=== PATIENT | male | born 1970 | race Caucasian/White ===

== ENCOUNTER 2023-02-13 16:10 | Outpatient (AMB) | payer OTHER, SELFPAY ==
--- NOTE | 2023-02-13 16:24 | A.OFFPC_ITS ---
Vital Signs 02/13/23 16:26 Height 5 ft 6 in Weight 157 lb BMI 25.3 BP 120/80 Blood Pressure Location Lt brachial Position Sitting Pulse 78 Pulse Source Pulse Oximeter Pulse Oximetry (%) 98 Oxygen Delivery Method Room Air Intake Visit Reasons: NPV- cluster headaches/medication Manager Testing Required: No Accompanied by: Self / Same As Patient Allergies No Known Allergies Allergy (Verified 02/13/23 16:51) Medication List - Last Reconciled 02/13/23 by Shahram Armas MD prednisone 1 tablet TID x 5 days, then 1 tablet BID x 5 days, then 1 tablet QD x 5 days; Tobacco use date assessed: 02/13/23 Dental Screening Dental Screen Date: 02/13/23 Did you have a dental visit in the last 12 months?: Yes Did you have a dental problem in the last 6 months where you did not have access to dental care?: No Was dental information given to patient?: Patient has dentist HPI NPV- cluster headaches/medication HPI Details Patient comes in today for his annual physical examination and to REestablish care - used to see Lilia Gan but he has not been back since 2016 (last visit was on 08/15/2016) States that he continues to follow up with Dr. Reis (neurology) for management of his cluster headaches and ADD Was on Methylphenidate 10 mg QD-BID in the past but states that he was taken off Methylphenidate by Dr. Reis a few months ago - was reportedly told that he is getting too old to continue taking stimulants States that he currently feels okay and that his only potential issue is that he cannot seem to get more than 5 to 5.5 hours of sleep at night before he wakes up States that he is not able to go back to sleep afterwards but he does not experience any increased fatigue or somnolence during the day and other than taking a 20 minute power nap in the early afternoon, he has not needed to get any additional sleep/nap/rest throughout the day He denies any headaches lately and states that his cluster headaches seem to be well-controlled and he has not had to take any Prednisone for flare ups of his cluster headaches lately Denies any dizziness Denies any chest pains, no SOB No nausea/vomiting, no abdominal pain No change in bowel habits noted He denies any acute urinary symptoms States that he has never had a screening colonoscopy done in the past [facility] Medical History Smoker Attention deficit disorder (ADD) Cluster headaches Surgical History History of tooth extraction Social History (Updated 02/13/23 @ 19:11 by Shahram Armas MD) Housing: Apartment Alcohol intake: current Alcohol intake frequency: 3 or more drinks per day Patient Tobacco Use Status: Former Tobacco user e-Cigarette/Vaping Use: Former Use Substance Use Type: Marijuana service: No Current occupational status: employed Cognitive needs: No Hearing needs: No Vision needs: No Questionnaire PHQ-9 Over the last 2 weeks, how often have you been bothered by any of the following problems? 1. Little interest or pleasure in doing things: not at all 2. Feeling down, depressed, or hopeless: not at all 3. Trouble falling or staying asleep, or sleeping too much: not at all 4. Feeling tired or having little energy: not at all 5. Poor appetite or overeating: not at all 6. Feeling bad about yourself - or that you are a failure or have let yourself or your family down: not at all 7. Trouble concentrating on things, such as reading the newspaper or watching television: not at all 8. Moving or speaking so slowly that other people could have noticed. Or the opposite - being so fidgety or restless that you have been moving around a lot more than usual: not at all 9. Thoughts that you would be better off or of hurting yourself in some way: not at all Total score: 0 Depression Screening Interpretation: Negative 30311 - PHQ-9 Billing: Yes Source: Developed by Drs. Kendall Lowe, Mylene Santana, Edgar Argueta and colleagues, with an educational kassi from [employer]. Thrive Questionnaire Date Thrive assessed: 02/13/23 I am a: Patient What is your living situation today?: I have a steady place to live Within the past 12 months, did the food you bought not last and you didn't have the money to get more?: Never true Within the past 12 months, did you worry whether your food would run out before you got money to buy more?: Never true Do you have trouble paying for medicines?: No Do you have trouble getting transportation to medical appointments?: No Do you have trouble paying your heating and electricity bill?: No Do you have trouble taking care of your child, family member or friend?: No Do you have trouble with day-to-day activities such as bathing, preparing meals, shopping, managing finances, etc.?: No Are you currently unemployed and looking for a job?: No Are you interested in more education?: No Please select the resources that you would like help with: None Currently or been in a relationship where the following occur: no concerns reported AUDIT C Alcohol Use Questionnaire (AUDIT-C) 1. How often do you have a drink containing alcohol?: 2-3 times a week 3. How often do you have six or more drinks on one occasion?: Weekly Total Score: 6 Score Reviewed/Action Taken: Yes ALAN-7 AMB Questionnaire ALAN-7 Date ALAN - 7 assessed: 02/13/23 Feeling nervous, anxious, or on edge: 0 = Not at all Not being able to stop or control worryin = Not at all Worrying too much about different things: 0 = Not at all Trouble relaxin = Not at all Being so restless that it is hard to sit still: 0 = Not at all Becoming easily annoyed or irritable: 0 = Not at all Feeling afraid as if something awful might happen: 0 = Not at all Total ALAN-7 score (0-4 normal; 5-9 mild; 10-14 moderate; 15-21 severe): 0 Source: Developed by Drs. Kendall Lowe, Mylene Santana, Edgar Argueta and colleagues, with an educational kassi from [employer]. Review of Systems Const Denies chills, Denies fatigue, Denies fever(s), Denies headache(s) (controlled lately), Denies malaise and Denies weakness Eyes Denies blurry vision, Denies change in vision, Denies irritation and Denies itchy eyes ENT Denies dysphagia, Denies dizziness, Denies otalgia, Denies headache(s) (controlled lately), Denies nasal congestion, Denies neck pain, Denies odynophagia and Denies sore throat Card Denies chest pain, Denies rapid heart rate, Denies irregular heart rhythm, Denies palpitations and Denies dyspnea Resp Denies chest congestion, Denies cough, Denies dyspnea and Denies wheezing GI Denies abdominal pain, Denies bloating, Denies constipation, Denies dysphagia, Denies heartburn, Denies diarrhea, Denies nausea, Denies odynophagia and Denies vomiting Denies hematuria, Denies difficulty urinating, Denies dysuria, Denies urinary frequency and Denies urinary urgency Musc Denies back pain, Denies arthralgias, Denies joint swelling, Denies muscle weakness and Denies neck pain Skin/Breast Denies change in pigmentation, Denies lesions, Denies rash and Denies unusual bruising Neuro Denies dizziness, Denies headache(s) (controlled lately), Denies paresthesias and Denies weakness Endo Denies fatigue and Denies palpitations Aller/Immun Denies itchy eyes and Denies wheezing Physical exam (Primary Care) Vital Signs: Last Vital Signs Pulse 78 02/13/23 16:26 BP 120/80 02/13/23 16:26 Pulse Ox 98 02/13/23 16:26 Oxygen Delivery Method Room Air 02/13/23 16:26 BMI result Body Mass Index 25.3 Tobacco/Smoking Status: Tobacco use Status Tobacco use date assessed 02/13/23 02/13/23 16:32 Patient Tobacco Use Status Former Tobacco user 02/13/23 16:58 e-Cigarette/Vaping Use Former Use 02/13/23 16:58 PHQ-9: PHQ-9 Score PHQ-9: Total score 0 02/13/23 16:59 Depression Screening Interpretation: Negative Thrive Assessment: Date of Thrive Assessment Date Thrive assessed 02/13/23 02/13/23 16:32 Currently or been in a relationship where the following occur: no concerns reported Const General: no acute distress, alert and awake Orientation/consciousness: patient oriented x3 HENMT Head: Yes normocephalic and Yes atraumatic Ears: external ears normal, TM's normal bilaterally and EAC's normal General nose exam: No nasal discharge present Face and sinus: Yes normal facial exam and Yes sinuses nontender Teeth and gingiva: dentition normal Throat: Yes posterior oropharynx normal and Yes tonsils normal (no TP congestion) Eyes Eyelids: Yes eyelids normal Conjunctivae: conjunctivae normal Pupils: Equal, round and reactive pupils present EOM: EOMs intact bilaterally Neck Neck: Yes no lymphadenopathy and Yes supple Thyroid: Thyroid normal Resp Auscultation: clear to auscultation bilaterally, no rales and no wheezes Cardio Rate: regular rate Rhythm: regular rhythm Heart sounds: no murmurs GI Palpation (GI): Soft to palpation, nontender and No hepatosplenomegaly present Auscultation: normal bowel sounds General: Yes no CVA tenderness Back/Spine/Pelvis Back: no CVA tenderness Thoracic/Lumbar Spine: thoracic and lumbar spine normal to inspection Skin Lesions: no lesions Rashes: no rashes Neuro General: patient oriented x3, moves all extremities, no focal motor deficits and CN's II-XI intact bilaterally Cranial nerves: Yes Equal, round and reactive pupils present Cognition (Neuro): normal cognition Gait exam (Neuro): Normal gait present Extrem General: Yes no clubbing, cyanosis or edema Assessment and Plan Assessment & Plan (1) Annual physical exam: Code(s): Z00.00 - Encounter for general adult medical examination without abnormal findings Plan: Check labs NICKY Is advised that we will reach out to him if any of his labs come back abnormal and needs intervention (2) Cluster headaches: Code(s): G44.009 - Cluster headache syndrome, unspecified, not intractable Qualifiers: Headache chronicity pattern: unspecified pattern Intractability: not intractable Qualified Code(s): G44.009 - Cluster headache syndrome, uns pecified, not intractable Plan: Controlled lately Takes Prednisone 20 mg as instructed as needed when headaches flare up but states that he has not had to take Prednisone in a while now Follow up with neurology (Dr. Reis) as scheduled (3) Attention deficit disorder (ADD): Code(s): F98.8 - Other specified behavioral and emotional disorders with onset usually occurring in childhood and adolescence Qualifiers: Hyperactivity presence: absent Qualified Code(s): F98.8 - Other specified behavioral and emotional disorders with onset usually occurring in childhood and adolescence Plan: Used to take Methylphenidate 10 mg QD-BID in the past but states that he was taken off Methylphenidate by Dr. Reis a few months ago as he was reportedly told that he is getting too old to continue taking stimulants Follow up with Dr. Reis as scheduled (4) Smoker: Code(s): F17.200 - Nicotine dependence, unspecified, uncomplicated Plan: Counseled on smoking cessation States that he quit smoking a couple of months ago but often goes back to smoking on and off - have advised that his goal should be complete cessation of smoking (5) Colon cancer screening: Code(s): Z12.11 - Encounter for screening for malignant neoplasm of colon Plan: Will refer him to GI for screening colonoscopy (has never had one done in the past) Plan To return in 1 year for his next annual physical examination Orders: Orders Comprehensive [place]. Panel Fast Today G44.009 - Cluster headache syndrome, unspecified, not intractable, Z00.00 - Encounter for general adult medical examination without abnormal findings Lipid Panel Today E78.00 - Pure hypercholesterolemia, unspecified, G44.009 - Cluster headache syndrome, unspecified, not intractable, Z00.00 - Encounter for general adult medical examination without abnormal findings TSH reflex Free T4 Today E78.00 - Pure hypercholesterolemia, unspecified, Z00.00 - Encounter for general adult medical examination without abnormal findings UA CC w/rflx Micro + Cult Today R30.0 - Dysuria, Z00.00 - Encounter for general adult medical examination without abnormal findings Vitamin D 25-OH Total Today E55.9 - Vitamin D deficiency, unspecified Complete Blood Count Auto Diff Today G44.009 - Cluster headache syndrome, unspecified, not intractable, Z00.00 - Encounter for general adult medical examination without abnormal findings Prostate Specific Antigen Scr Today G44.009 - Cluster headache syndrome, unspecified, not intractable, Z00.00 - Encounter for general adult medical examination without abnormal findings Referrals Gastroenterology Referral Z12.11 - Encounter for screening for malignant neoplasm of colon Coding Level of Care Code New Pt Prev Care 40-64y([id number]) Diagnoses Annual physical exam Z00.00 Cluster headache, not intractable, unspecified chronicity pattern G44.009 Headache chronicity pattern: unspecified pattern Intractability: not intractable Attention deficit disorder (ADD) without hyperactivity F98.8 Hyperactivity presence: absent Smoker F17.200 Colon cancer screening Z12.11
[2023-02-13 16:26] VITALS: BP 120/80; PULSE 78; O2SAT 98; BMI 25.3
== END 2023-02-13 17:08 | disposition home or self-care (01) ==
PROVIDERS: Visit Provider Internal Medicine
DX: Z00.00 Encounter for general adult medical examination without abnormal findings (principal); G44.009 Cluster headache syndrome, unspecified, not intractable; F98.8 Other specified behavioral and emotional disorders with onset usually occurring in childhood and adolescence; F17.200 Nicotine dependence, unspecified, uncomplicated; Z12.11 Encounter for screening for malignant neoplasm of colon
CPT/HCPCS: 99386

== ENCOUNTER 2023-04-16 15:29 | Outpatient (AMB) | payer OTHER, SELFPAY ==
--- NOTE | 2023-04-16 15:33 | A.OFFVIS_ITS ---
Intake Vital Signs 04/16/23 15:35 Height 5 ft 5 in Weight 164 lb 7.437 oz BMI 27.4 BP 122/71 Blood Pressure Location Lt brachial Position Sitting Pulse 72 Intake Visit Reasons: Colonoscopy screening Intake Note: Patient presents to in office visit today as a new patient for colonoscopy screening. CC: Patient has never had a colonoscopy done before, Denies having any GI concerns today. Allergies No Known Allergies Allergy (Verified 04/16/23 15:38) HPI Colonoscopy screening HPI Details 52-year-old male here for preprocedural meeting to discuss a screening colonoscopy. He is referred by Shahram Armas of [facility] primary care. PMX Smoker Attention deficit disorder Cluster headaches * SURGICAL HISTORY Teeth extraction * ALLERGIES: NKDA * Lot78 LABS: none in our system TODAY'S VISIT This is his first colonoscopy. HE DENIES ANY BOWEL OR upper GI problems. He denies any cardiac or respiratory problems. He has cardiology technologist with anesthesia or sedation. No ID problems. No known FHX of crc or polyps. [facility] Medical History Smoker Attention deficit disorder (ADD) Cluster headaches Surgical History History of tooth extraction Social History (Updated 02/13/23 @ 19:11 by Shahram Armas MD) Housing: Apartment Alcohol intake: current Alcohol intake frequency: 3 or more drinks per day Patient Tobacco Use Status: Former Tobacco user e-Cigarette/Vaping Use: Former Use Substance Use Type: Marijuana service: No Current occupational status: employed Cognitive needs: No Hearing needs: No Vision needs: No Review of Systems Const Denies fatigue, Denies fever(s), Denies night sweats, Denies poor appetite and Denies weight loss ENT Reports Normal hearing present, Denies dental pain, Denies dysphagia, Denies hearing loss, Denies mouth pain, Denies odynophagia, Denies throat swelling, Denies tongue swelling and Reports other (Dentition adequate) Card Reports no additional complaints Resp Reports no additional complaints GI Denies abdominal pain, Denies melena, Denies bloating, Denies hematochezia, Denies constipation, Denies GI cramping, Denies dysphagia, Denies excessive flatus, Denies early satiety, Denies heartburn, Denies diarrhea, Denies nausea, Denies odynophagia, Denies vomiting and Denies hematemesis Skin/Breast Denies pruritus, Denies lesions, Denies rash and Denies jaundice Neuro Reports Normal hearing present and Denies Abnormal speech present Endo Denies fatigue Aller/Immun Denies throat swelling and Denies tongue swelling Physical Exam Vital Signs: Last Vital Signs Pulse 72 04/16/23 15:35 BP 122/71 04/16/23 15:35 BMI result Body Mass Index 27.4 Const General: cooperative, no acute distress, well developed and well groomed Nutritional Appearance: average body habitus and well nourished Orientation/consciousness: oriented to person, oriented to place and oriented to time Limitations: No language barrier HEENT Head: Yes normocephalic and Yes atraumatic Eyes General: appearance normal, both eyes and all related structures Pupils: Equal, round and reactive pupils present Neck Neck: Yes normal visual inspection and Yes no lymphadenopathy Thyroid: Thyroid normal Resp Effort & Inspection: normal respiratory effort and able to speak in complete sentences Auscultation: clear to auscultation bilaterally Cardio Rate: regular rate Rhythm: regular rhythm Heart sounds: Normal, physiologic split S2 sound present Peripheral pulses: radial pulses present and posterior tibial pulses present GI Inspection: No distended and No Abdominal panniculus present Palpation (GI): Soft to palpation, nontender, no guarding, not rigid and No hepatosplenomegaly present Percussion: Yes normal to percussion Auscultation: normal bowel sounds Rectal Exam - Male: Yes deferred Skin General skin exam: no rashes or lesions noted, turgor normal, skin not dry, no jaundice, No spider nevi and no striae Rashes: no rashes Nails: normal Neuro General: oriented to person, oriented to place and oriented to time Cranial nerves: Yes Equal, round and reactive pupils present and Yes Normal hearing present Speech: No Abnormal speech present Extrem General: Yes normal to inspection, No clubbing, No cyanosis and No edema Psych Appearance: grossly normal and well kempt Mental Status: mental status grossly normal Speech and movement: Normal speech and movement present Affect: normal affect Attitude: cooperative Thought process: Normal thought process present and not confabulating Thought content: Normal thought content present Insight: Fair insight present (Psych) Judgement: Fair judgement present (Psych) Assessment & Plan Assessment & Plan (1) Pre-op examination: Code(s): Z01.818 - Encounter for other preprocedural examination Plan This is his first colonoscopy. HE DENIES ANY BOWEL OR upper GI problems. He denies any cardiac or respiratory problems. He has cardiology technologist with anesthesia or sedation. No ID problems. No known FHX of crc or polyps. Orders: Orders Comprehensive Met. Panel 04/16/23 Z01.818 - Encounter for other preprocedural examination Complete Blood Count Auto Diff 04/16/23 Z.818 - Encounter for other preprocedural examination Medications: New peg 3350-electrolytes 236-22.74-6.74 -5.86 gram (Golytely) until fecal effluent is clear; do not exceed a total volume of 2,000 mL 240 mL PO Q10M 4,000 mL 0RF 1 day Z12.11 - Encounter for screening for malignant neoplasm of colon Coding Level of Care Code New Pt Level 3 (56858) Diagnoses Pre-op examination Z01.818
[2023-04-16 15:35] VITALS: BP 122/71; PULSE 72; BMI 27.4
== END 2023-04-16 16:01 | disposition home or self-care (01) ==
PROVIDERS: Visit Provider Nurse Practitioner
DX: Z01.818 Encounter for other preprocedural examination (principal)
CPT/HCPCS: 99203

== ENCOUNTER → 2023-04-16 15:29 | Outpatient (BNVA) | payer OTHER, SELFPAY | PROVIDERS: Visit Provider Nurse Practitioner ==

== ENCOUNTER 2023-12-14 07:02 | Outpatient (REF) | payer BC, SELFPAY ==
[2023-12-14 07:16] LABS: MANUAL DIFF FLAG NO
[2023-12-14 08:08] LABS: Basophils Percent Auto 0.2 % (0-2); Eosinophils Absolute Auto 0.1 X10*3/uL (0.0-0.4); Eosinophils Percent Auto 2.3 % (0-4); Hematocrit 44.4 % (42.0-52.0); Hemoglobin 15.3 g/dl (14.0-18.0); Imm Gran Abs Auto 0.02 X10*3/uL (0.00-0.03); Imm Gran Pct Auto 0.3 % (0.0-0.4); Lymphocytes Absolute Auto 2.2 X10*3/uL (1.2-4.9); Lymphocytes Percent Auto 36.5 % (20-40); Mean Corpuscular HGB Conc 34.5 g/dl (31.0-36.0); Mean Corpuscular Hemoglobin 30.5 pg (27.0-33.0); Mean Corpuscular Volume 88.6 fL (80.0-98.0); Mean Platelet Volume 9.8 fL (9.4-12.4); Monocytes Absolute Auto 0.5 X10*3/uL (0.1-1.2); Monocytes Percent Auto 7.9 % (2-11); Neutrophils Absolute Auto 3.2 x10*3/uL (2.0-8.3); Neutrophils Percent Auto 52.8 % (45-73); Platelet Count 219 X10*3/uL (160-400); Red Blood Count 5.01 X10*6/uL (4.60-5.80); Red Cell Distribution Width 13.1 % (11.0-16.0); White Blood Count 6.1 X10*3/uL (4.8-10.8)
[2023-12-14 08:37] LABS: Alanine Aminotransferase 18 U/L (0-40); Albumin Level 4.4 g/dL (3.5-5.0); Alkaline Phosphatase 72 U/L (39-117); Anion Gap 12 (12-20); Aspartate Amino Transferase 17 U/L (5-37); Bilirubin Total 0.6 mg/dL (0.0-1.0); Blood Urea Nitrogen 16 mg/dL (9-16); Calcium 8.9 mg/dL (8.4-10.2); Carbon Dioxide 25 mmol/L (22-29); Chloride 107 mmol/L (96-108); Cholesterol 277 mg/dL (<200); Estimated Glomerular Filt Rate > 60; Glucose Fasting 94 mg/dL (60-99); HDL Cholesterol 57 mg/dL (>40); LDL Cholesterol Calculated 194 mg/dL (<100); Potassium 3.7 mmol/L (3.3-5.1); Sodium 140 mmol/L (135-145); Total Protein 6.9 g/dL (6.5-8.0); Triglycerides 132 mg/dL (<150)
[2023-12-14 08:56] LABS: TSH reflex Free T4 3.28 uIU/mL (0.32-4.0); Vitamin D 25-OH Total 46.9 ng/mL (>30)
[2023-12-14 11:12] LABS: Prostate Specific Antigen Scr 0.56 ng/mL (<0.05-4.0)
[2023-12-14 13:22] LABS: Appearance Urine Clear; Color Urine Yellow; Glucose Urine UA Negative (Negative); Leukocyte Esterase Urine Negative (Negative); Nitrite Urine Negative (Negative); PH 6.5 (5.0-9.0); Urine Blood Negative (Negative); Urine Ketones Negative (Negative); Urine Protein Negative (Neg-Trace)
== END 2023-12-14 07:03 | disposition home or self-care (01) ==
LOC: HO.LAB 07:02
PROVIDERS: PCP Internal Medicine; Visit Provider Internal Medicine
DX: Z00.00 Encounter for general adult medical examination without abnormal findings (principal); G44.009 Cluster headache syndrome, unspecified, not intractable; E78.00 Pure hypercholesterolemia, unspecified; E55.9 Vitamin D deficiency, unspecified; R30.0 Dysuria; Z12.5 Encounter for screening for malignant neoplasm of prostate
CPT/HCPCS: 36415; 80053; 80061; 81003; 82306; 84153; 84443; 85025

== ENCOUNTER 2024-02-15 16:09 | Outpatient (AMB) | payer BC, SELFPAY ==
[2024-02-15 16:10] VITALS: BP 120/80; PULSE 78; O2SAT 97; BMI 25.8
--- NOTE | 2024-02-15 16:10 | MHC.PC.OV ---
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 Required: No Accompanied by: Self / Same As Patient Allergies No Known Allergies Allergy (Verified 02/16/24 05:00) Medication List - Last Reconciled 02/16/24 by Shahram Armas MD peg 3350-electrolytes 236-22.74-6.74 -5.86 gram (Golytely) 240 mL PO Q10M 1 day Tobacco use date assessed: 02/15/24 Dental Screening Dental Screen Date: 02/15/24 Did you have a dental visit in the last 12 months?: Yes Did you have a dental problem in the last 6 months where you did not have access to dental care?: No Was dental information given to patient?: Patient has dentist HPI pe HPI Details Patient comes in today for his annual physical examination States that he currently feels okay He denies any headaches or dizziness (+) Hx of cluster headaches and he has been seeing Dr. Reis for neurology follow up regularly but states that he has not had any significant bouts with headaches over the past 2 to 3 years now He denies any chest pains, no SOB No nausea/vomiting, no abdominal pain No change in bowel habits noted He denies any acute urinary symptoms Adds that he's had a raised skin lesion over the left side of his neck for a few years now but has noticed lately that is darker in appearance States that the lesion does not hurt or itch but he has been keeping it covered with a band aid all the time to keep it from getting irritated - is wondering if he should now get this checked He had his follow up labs done a couple of months ago - to discuss his results States that he was seen by GI late last year and was advised that once he is cleared , he will be contacted to have his colonoscopy scheduled but states that he has not yet been called up since and he was assuming that this was because he was not able to get his labs done until this past November [facility] Medical History Pure hypercholesterolemia Smoker Attention deficit disorder (ADD) Cluster headaches Surgical History History of tooth extraction Social History Housing: Apartment Alcohol intake: current Alcohol intake frequency: 3 or more drinks per day Patient Tobacco Use Status: Former Tobacco user e-Cigarette/Vaping Use: Former Use Substance Use Type: Marijuana service: No Current occupational status: employed Cognitive needs: No Hearing needs: No Vision needs: No Questionnaire PHQ-9 Over the last 2 weeks, how often have you been bothered by any of the following problems? 1. Little interest or pleasure in doing things: not at all 2. Feeling down, depressed, or hopeless: not at all 3. Trouble falling or staying asleep, or sleeping too much: not at all 4. Feeling tired or having little energy: not at all 5. Poor appetite or overeating: not at all 6. Feeling bad about yourself - or that you are a failure or have let yourself or your family down: not at all 7. Trouble concentrating on things, such as reading the newspaper or watching television: not at all 8. Moving or speaking so slowly that other people could have noticed. Or the opposite - being so fidgety or restless that you have been moving around a lot more than usual: not at all 9. Thoughts that you would be better off or of hurting yourself in some way: not at all Total score: 0 Depression Screening Interpretation: Negative Depression Screening Done: Yes 49567 - PHQ-9 Billing: Yes Source: Developed by Drs. Kendall Lowe, Mylene Santana, Edgar Argueta and colleagues, with an educational kassi from [employer]. Thrive Questionnaire Date Thrive assessed: 02/15/24 I am a: Patient What is your living situation today?: I choose not to answer this question Within the past 12 months, did the food you bought not last and you didn't have the money to get more?: I choose not to answer this question Within the past 12 months, did you worry whether your food would run out before you got money to buy more?: I choose not to answer this question Do you have trouble paying for medicines?: I choose not to answer this question Do you have trouble getting transportation to medical appointments?: I choose not to answer this question Do you have trouble paying your heating and electricity bill?: I choose not to answer this question Do you have trouble taking care of your child, family member or friend?: I choose not to answer this question Do you have trouble with day-to-day activities such as bathing, preparing meals, shopping, managing finances, etc.?: I choose not to answer this question Are you currently unemployed and looking for a job?: I choose not to answer this question Are you interested in more education?: I choose not to answer this question Please select the resources that you would like help with: None Currently or been in a relationship where the following occur: No concerns reported THRIVE Score: 0 AUDIT C Alcohol Use Questionnaire (AUDIT-C) 1. How often do you have a drink containing alcohol?: Never Total Score: 0 ALAN-7 AMB Questionnaire ALAN-7 Date ALAN - 7 assessed: 02/15/24 Feeling nervous, anxious, or on edge: 0 = Not at all Not being able to stop or control worryin = Not at all Worrying too much about different things: 0 = Not at all Trouble relaxin = Not at all Being so restless that it is hard to sit still: 0 = Not at all Becoming easily annoyed or irritable: 0 = Not at all Feeling afraid as if something awful might happen: 0 = Not at all Total ALAN-7 score (0-4 normal; 5-9 mild; 10-14 moderate; 15-21 severe): 0 Source: Developed by Drs. Kendall Lowe, Mylene Santana, Edgar Argueta and colleagues, with an educational kassi from [employer]. Review of Systems Const Denies chills, Denies fatigue, Denies fever(s), Denies headache(s), Denies malaise and Denies weakness Eyes Denies blurry vision, Denies change in vision, Denies irritation and Denies itchy eyes ENT Denies dysphagia, Denies dizziness, Denies otalgia, Denies headache(s), Denies nasal congestion, Denies neck pain, Denies odynophagia and Denies sore throat Card Denies chest pain, Denies rapid heart rate, Denies irregular heart rhythm, Denies palpitations and Denies dyspnea Resp Denies chest congestion, Denies cough, Denies dyspnea and Denies wheezing GI Denies abdominal pain, Denies bloating, Denies constipation, Denies dysphagia, Denies heartburn, Denies diarrhea, Denies nausea, Denies odynophagia and Denies vomiting Denies hematuria, Denies difficulty urinating, Denies dysuria, Denies urinary frequency and Denies urinary urgency Musc Denies back pain, Denies arthralgias, Denies joint swelling, Denies muscle weakness and Denies neck pain Skin/Breast Details: (+) raised, dark lesion on the left side of the neck at the base Denies change in pigmentation, Denies rash and Denies unusual bruising Neuro Denies dizziness, Denies headache(s), Denies paresthesias and Denies weakness Endo Denies fatigue and Denies palpitations Aller/Immun Denies itchy eyes and Denies wheezing Physical exam (Primary Care) Vital Signs: Last Vital Signs Pulse 78 02/15/24 16:10 BP 120/80 02/15/24 16:10 Pulse Ox 97 02/15/24 16:10 Oxygen Delivery Method Room Air 02/15/24 16:10 BMI result Body Mass Index 25.8 Tobacco/Smoking Status: Tobacco use Status Tobacco use date assessed 02/15/24 02/15/24 16:16 Patient Tobacco Use Status Former Tobacco user 02/15/24 16:16 e-Cigarette/Vaping Use Former Use 02/15/24 16:16 PHQ-9: PHQ-9 Score PHQ-9: Total score 0 02/15/24 17:05 Depression Screening Interpretation: Negative Thrive Assessment: Date of Thrive Assessment Date Thrive assessed 02/15/24 02/15/24 16:16 Currently or been in a relationship where the following occur: No concerns reported Const General: no acute distress, alert and awake Orientation/consciousness: patient oriented x3 HENMT Head: Yes normocephalic and Yes atraumatic Ears: external ears normal, TM's normal bilaterally and EAC's normal General nose exam: No nasal discharge present Face and sinus: Yes normal facial exam and Yes sinuses nontender Teeth and gingiva: dentition normal Throat: Yes posterior oropharynx normal and Yes tonsils normal (no TP congestion) Eyes Eyelids: Yes eyelids normal Conjunctivae: conjunctivae normal Pupils: Equal, round and reactive pupils present EOM: EOMs intact bilaterally Neck Neck: Yes no lymphadenopathy and Yes supple Thyroid: Thyroid normal Resp Auscultation: clear to auscultation bilaterally, no rales and no wheezes Cardio Rate: regular rate Rhythm: regular rhythm Heart sounds: no murmurs GI Palpation (GI): Soft to palpation, nontender and No hepatosplenomegaly present Auscultation: normal bowel sounds General: Yes no CVA tenderness Back/Spine/Pelvis Back: no CVA tenderness Thoracic/Lumbar Spine: thoracic and lumbar spine normal to inspection Skin Other: (+) raised, hyperpigmented, keratotic-appearing lesion on the dorsolateral side of the neck, at the base Rashes: no rashes Neuro General: patient oriented x3, moves all extremities, no focal motor deficits and CN's II-XI intact bilaterally Cranial nerves: Yes Equal, round and reactive pupils present Cognition (Neuro): normal cognition Gait exam (Neuro): Normal gait present Extrem General: Yes no clubbing, cyanosis or edema Results Reviewed Results Reviewed: Laboratory Tests 12/14/23 12/14/23 07:15 12:00 WBC 6.1 Hgb 15.3 Hct 44.4 Plt Count 219 Sodium 140 Potassium 3.7 Creatinine 0.88 Estimated GFR > 60 Fasting Glucose 94 Calcium 8.9 AST 17 ALT 18 Triglycerides 132 Cholesterol 277 H LDL Cholesterol, Calc 194 H HDL Cholesterol 57 PSA Screen 0.56 25-OH Vitamin D Total 46.9 TSH 3.28 Ur Specific [place] 1.010 Urine Protein Negative Urine Glucose (UA) Negative Urine Blood Negative Urine Nitrite Negative Ur Leukocyte Esterase Negative Assessment and Plan Assessment & Plan (1) Annual physical exam: Code(s): Z00.00 - Encounter for general adult medical examination without abnormal findings Plan: Results of his labs done a couple of months ago reviewed and discussed with patient States that he was seen by GI back in April 2023 and was advised that he will be contacted to have his colonoscopy scheduled but states that he has not received any call back since - have advised patient to reach out to GI himself to request that he now be scheduled for his colonoscopy as he is really past due for one (2) Pure hypercholesterolemia: Code(s): E78.00 - Pure hypercholesterolemia, unspecified Plan: Have advised patient that his total and LDL cholesterol were very high on his labs done a couple of months ago Discussed low cholesterol diet - low cholesterol diet info sheet provided to patient today Have advised him that if he cannot get his numbers down with diet modification, we will then likely need to start him on cholesterol-lowering medications later on Patient states that he is not really aware if anyone, including his parents, have high cholesterol levels and / or heart disease but relates that his dad at an early age Will have him recheck his labs and fasting lipids in 6 months for follow up (3) Cluster headaches: Code(s): G44.009 - Cluster headache syndrome, unspecified, not intractable Qualifiers: Headache chronicity pattern: unspecified pattern Intractability: not intractable Qualified Code(s): G44.009 - Cluster headache syndrome, unspecified, not intractable Plan: States that he has NOT had any significant bouts of cluster headaches in about 2 to 3 years now He continues to see Dr. Reis for neurology follow up regularly/yearly (4) Attention deficit disorder (ADD): Code(s): F98.8 - Other specified behavioral and emotional disorders with onset usually occurring in childhood and adolescence Qualifiers: Hyperactivity presence: absent Qualified Code(s): F98.8 - Other specified behavioral and emotional disorders with onset usually occurring in childhood and adolescence Plan: Patient used to take Methylphenidate but was advised by Dr. Reis a couple of years ago to come off his Rx, due to his age Was advised that it becomes riskier continuing on stimulants as one gets older, including increasing risks of cardiovascular events Patient states that he has not really had any significant issues from his ADD since he stopped taking his Rx a couple of years ago and feels fine without them (5) Hyperpigmented skin lesion: Code(s): L81.9 - Disorder of pigmentation, unspecified Plan: Will refer him to dermatology for further evaluation and management, particularly to help r/o cutaneous malignancy Plan Follow up in 6 months Orders: Orders Comprehensive [place]. Panel Fast 6 Months E78.00 - Pure hypercholesterolemia, unspecified Lipid Panel 6 Months E78.00 - Pure hypercholesterolemia, unspecified Referrals Dermatology Referral L81.9 - Disorder of pigmentation, unspecified Coding Level of Care Code Est Pt Prev Care 40-64y(04760) Diagnoses Annual physical exam Z00.00 Pure hypercholesterolemia E78.00 Cluster headache, not intractable, unspecified chronicity pattern G44.009 Headache chronicity pattern: unspecified pattern Intractability: not intractable Attention deficit disorder (ADD) without hyperactivity F98.8 Hyperactivity presence: absent Hyperpigmented skin lesion L81.9
== END 2024-02-15 17:07 | disposition home or self-care (01) ==
PROVIDERS: PCP Internal Medicine; Visit Provider Internal Medicine
DX: Z00.00 Encounter for general adult medical examination without abnormal findings (principal); E78.00 Pure hypercholesterolemia, unspecified; G44.009 Cluster headache syndrome, unspecified, not intractable; F98.8 Other specified behavioral and emotional disorders with onset usually occurring in childhood and adolescence; L81.9 Disorder of pigmentation, unspecified

== ENCOUNTER → 2024-02-15 16:09 | Outpatient (BNVA) | payer BC, SELFPAY | PROVIDERS: PCP Internal Medicine; Visit Provider Internal Medicine | DX: Z00.01 Encounter for general adult medical examination with abnormal findings (principal); E78.00 Pure hypercholesterolemia, unspecified; G44.009 Cluster headache syndrome, unspecified, not intractable; F98.8 Other specified behavioral and emotional disorders with onset usually occurring in childhood and adolescence; L81.9 Disorder of pigmentation, unspecified | CPT/HCPCS: 96127 ==

== ENCOUNTER 2024-08-01 16:48 | Outpatient (AMB) | payer BC, SELFPAY ==
[2024-08-01 16:53] VITALS: BP 124/82; PULSE 71; O2SAT 96; BMI 28.2
--- NOTE | 2024-08-01 16:53 | A.OFFPC_ITS ---
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: No Accompanied by: Self / Same As Patient Allergies No Known Allergies Allergy (Verified 08/01/24 17:17) Medication List - Last Reconciled 08/01/24 by Shahram Armas MD peg 3350-electrolytes 236-22.74-6.74 -5.86 gram (Golytely) 240 mL PO Q10M 1 day Tobacco use date assessed: 08/01/24 Dental Screening Dental Screen Date: 08/01/24 Did you have a dental visit in the last 12 months?: Yes Did you have a dental problem in the last 6 months where you did not have access to dental care?: No Was dental information given to patient?: Patient has dentist HPI hyperlipidemia, cluster CHEEMA, ADD HPI Details Patient comes in today for his follow-up visit - he has gained almost 15 lbs since his last visit States that he feels okay He denies any headaches or dizziness - states that he has not had any recurrent headaches for the past few years now He continues to follow-up regularly with Dr. Reis for his cluster headaches, which appears to be well-controlled at present He denies any chest pains, no increased shortness of breath No nausea/vomiting, no abdominal pain No change in bowel habits noted He was not able to get his follow-up labs done prior to his appointment today [facility] Medical History (Updated 08/02/24 @ 02:47 by Shahram Armas MD) Overweight (BMI 25.0-29.9) Pure hypercholesterolemia Smoker Attention deficit disorder (ADD) Cluster headaches Surgical History History of tooth extraction Social History Housing: Apartment Alcohol intake: current Alcohol intake frequency: 3 or more drinks per day Patient Tobacco Use Status: Former Tobacco user e-Cigarette/Vaping Use: Former Use Substance Use Type: Marijuana service: No Current occupational status: employed Cognitive needs: No Hearing needs: No Vision needs: No Questionnaire PHQ-9 Over the last 2 weeks, how often have you been bothered by any of the following problems? 1. Little interest or pleasure in doing things: not at all 2. Feeling down, depressed, or hopeless: not at all 3. Trouble falling or staying asleep, or sleeping too much: not at all 4. Feeling tired or having little energy: not at all 5. Poor appetite or overeating: not at all 6. Feeling bad about yourself - or that you are a failure or have let yourself or your family down: not at all 7. Trouble concentrating on things, such as reading the newspaper or watching television: not at all 8. Moving or speaking so slowly that other people could have noticed. Or the opposite - being so fidgety or restless that you have been moving around a lot more than usual: not at all 9. Thoughts that you would be better off or of hurting yourself in some way: not at all Total score: 0 Depression Screening Interpretation: Negative Depression Screening Done: Yes 65158 - PHQ-9 Billing: Yes Source: Developed by Drs. Kendall Lowe, Mylene Santana, Edgar Argueta and colleagues, with an educational kassi from [employer]. Thrive Questionnaire Date Thrive assessed: 08/01/24 I am a: Patient What is your living situation today?: I choose not to answer this question Within the past 12 months, did the food you bought not last and you didn't have the money to get more?: I choose not to answer this question Within the past 12 months, did you worry whether your food would run out before you got money to buy more?: I choose not to answer this question Do you have trouble paying for medicines?: I choose not to answer this question Do you have trouble getting transportation to medical appointments?: I choose not to answer this question Do you have trouble paying your heating and electricity bill?: I choose not to answer this question Do you have trouble taking care of your child, family member or friend?: I choose not to answer this question Do you have trouble with day-to-day activities such as bathing, preparing meals, shopping, managing finances, etc.?: I choose not to answer this question Are you currently unemployed and looking for a job?: I choose not to answer this question Are you interested in more education?: I choose not to answer this question Please select the resources that you would like help with: None Currently or been in a relationship where the following occur: No concerns reported THRIVE Score: 0 AUDIT C Alcohol Use Questionnaire (AUDIT-C) 1. How often do you have a drink containing alcohol?: Never 3. How often do you have six or more drinks on one occasion?: Never Total Score: 0 Score Reviewed/Action Taken: Yes AALN-7 AMB Questionnaire ALAN-7 Date ALAN - 7 assessed: 08/01/24 Feeling nervous, anxious, or on edge: 0 = Not at all Not being able to stop or control worryin = Not at all Worrying too much about different things: 0 = Not at all Trouble relaxin = Not at all Being so restless that it is hard to sit still: 0 = Not at all Becoming easily annoyed or irritable: 0 = Not at all Feeling afraid as if something awful might happen: 0 = Not at all Total ALAN-7 score (0-4 normal; 5-9 mild; 10-14 moderate; 15-21 severe): 0 Source: Developed by Drs. Kendall Lowe, Mylene Santana, Edgar Argueta and colleagues, with an educational kassi from [employer]. Review of Systems Const Denies chills, Denies fatigue, Denies fever(s) and Denies headache(s) ENT Denies dysphagia, Denies dizziness, Denies otalgia, Denies headache(s), Denies neck pain, Denies odynophagia and Denies sore throat Card Denies chest pain, Denies irregular heart rhythm, Denies palpitations and Denies dyspnea Resp Denies chest congestion, Denies cough and Denies dyspnea GI Denies abdominal pain, Denies constipation, Denies dysphagia, Denies heartburn, Denies diarrhea, Denies nausea, Denies odynophagia and Denies vomiting Denies difficulty urinating, Denies dysuria and Denies urinary frequency Musc Denies back pain, Denies arthralgias and Denies neck pain Skin/Breast Denies rash Neuro Denies dizziness, Denies headache(s) and Denies paresthesias Endo Denies fatigue and Denies palpitations Physical exam (Primary Care) Vital Signs: Last Vital Signs Pulse 71 08/01/24 16:53 BP 124/82 08/01/24 16:53 Pulse Ox 96 08/01/24 16:53 Oxygen Delivery Method Room Air 08/01/24 16:53 BMI result Body Mass Index 28.2 Tobacco/Smoking Status: Tobacco use Status Tobacco use date assessed 08/01/24 08/01/24 16:58 Patient Tobacco Use Status Former Tobacco user 08/01/24 16:58 e-Cigarette/Vaping Use Former Use 08/01/24 16:58 PHQ-9: PHQ-9 Score PHQ-9: Total score 0 08/01/24 17:22 Depression Screening Interpretation: Negative Thrive Assessment: Date of Thrive Assessment Date Thrive assessed 08/01/24 08/01/24 16:58 Currently or been in a relationship where the following occur: No concerns reported Const General: no acute distress and alert HENMT Ears: TM's normal bilaterally and EAC's normal Throat: Yes posterior oropharynx normal and Yes tonsils normal (no TP congestion) Neck Neck: Yes supple and No lymphadenopathy Thyroid: Thyroid normal Resp Auscultation: clear to auscultation bilaterally, no rales and no wheezes Cardio Rate: regular rate Rhythm: regular rhythm Heart sounds: no murmurs GI Palpation (GI): Soft to palpation and nontender Auscultation: normal bowel sounds General: Yes no CVA tenderness Back/Spine/Pelvis Back: no CVA tenderness Thoracic/Lumbar Spine: No lumbar spinal tenderness Skin Rashes: no rashes Extrem General: Yes no clubbing, cyanosis or edema Coding Level of Care Code Est Pt Level 4 (07613) Diagnoses Pure hypercholesterolemia E78.00 Cluster headache, not intractable, unspecified chronicity pattern G44.009 Headache chronicity pattern: unspecified pattern Intractability: not intractable Attention deficit disorder (ADD) without hyperactivity F98.8 Hyperactivity presence: absent Overweight (BMI 25.0-29.9) E66.3 Additional Codes PHQ-9 - 68414 - PHQ-9 Billing: Yes ([id number]) Assessment & Plan Assessment & Plan (1) Pure hypercholesterolemia: Code(s): E78.00 - Pure hypercholesterolemia, unspecified Category: Medical Plan: Reinforced low-cholesterol diet Patient is reminded that his cholesterol levels were significantly elevated on his labs done back in November 2023, with his total cholesterol level at 277 mg/dL and LDL cholesterol at 194 mg/dL Patient admits that he has not been compliant with his diet over the past several months, hence his recent weight gain States that he will try to work on improving his diet for now instead of starting on cholesterol-lowering medications immediately Will have him recheck his labs and fasting lipids in 3 months for follow-up (2) Cluster headaches: Code(s): G44.009 - Cluster headache syndrome, unspecified, not intractable Category: Medical Qualifiers: Headache chronicity pattern: unspecified pattern Intractability: not intractable Qualified Code(s): G44.009 - Cluster headache syndrome, unspecified, not intractable Plan: Patient states that he has NOT had any significant bouts of cluster headaches in about 3 years now He continues to see Dr. Reis for neurology follow up regularly/yearly (3) Attention deficit disorder (ADD): Code(s): F98.8 - Other specified behavioral and emotional disorders with onset usually occurring in childhood and adolescence Category: Medical Qualifiers: Hyperactivity presence: absent Qualified Code(s): F98.8 - Other specified behavioral and emotional disorders with onset usually occurring in childhood and adolescence Plan: Patient used to take Methylphenidate but was advised by Dr. Reis a couple of years ago to come off his Rx, due to his age He was advised that it becomes riskier continuing on stimulants as one gets older, including increasing risks of cardiovascular events Patient states that he has not had any significant issues related to his ADD since he stopped taking his Rx a couple of years ago and he feels fine without them (4) Overweight (BMI 25.0-29.9): Code(s): E66.3 - Overweight Category: Medical Plan: He has gained almost 15 lbs since his last visit States that this is mostly due to his poor dietary compliance and he will start working on getting his diet as well as his weight improved over the next few months Plan Follow up in 3 months Orders: Orders Comprehensive [place]. Panel Fast 3 Months E78.00 - Pure hypercholesterolemia, unspecified TSH reflex Free T4 3 Months E78.00 - Pure hypercholesterolemia, unspecified Complete Blood Count Auto Diff 3 Months D64.9 - Anemia, unspecified Lipid Panel 3 Months E78.00 - Pure hypercholesterolemia, unspecified UA CC w/rflx Micro + Cult 3 Months R30.0 - Dysuria Vitamin D 25-OH Total 3 Months E55.9 - Vitamin D deficiency, unspecified
== END 2024-08-01 17:26 | disposition home or self-care (01) ==
PROVIDERS: PCP Internal Medicine; Visit Provider Internal Medicine
DX: E78.00 Pure hypercholesterolemia, unspecified (principal); G44.009 Cluster headache syndrome, unspecified, not intractable; F98.8 Other specified behavioral and emotional disorders with onset usually occurring in childhood and adolescence; E66.3 Overweight

== ENCOUNTER → 2024-08-01 16:48 | Outpatient (BNVA) | payer BC, SELFPAY | PROVIDERS: PCP Internal Medicine; Visit Provider Internal Medicine | DX: E78.00 Pure hypercholesterolemia, unspecified (principal); G44.009 Cluster headache syndrome, unspecified, not intractable; F98.8 Other specified behavioral and emotional disorders with onset usually occurring in childhood and adolescence; E66.3 Overweight; Z68.28 Body mass index [BMI] 28.0-28.9, adult | CPT/HCPCS: 96127 ==

== ENCOUNTER 2024-11-30 16:34 | Outpatient (AMB) | payer BC, SELFPAY ==
[2024-11-30 16:36] VITALS: BP 120/80; PULSE 78; O2SAT 97; BMI 27.1
--- NOTE | 2024-11-30 16:36 | A.OFFPC_ITS ---
Vital Signs 11/30/24 16:36 Height 5 ft 5 in Weight 163 lb BMI 27.1 BP 120/80 Blood Pressure Location Lt brachial Position Sitting Pulse 78 Pulse Source Pulse Oximeter Pulse Oximetry (%) 97 Oxygen Delivery Method Room Air Intake Visit Reasons: hyperlipidemia Document Design Specialist Required: No Accompanied by: Self / Same As Patient Allergies No Known Allergies Allergy (Verified 11/30/24 17:10) Medication List - Last Reconciled 11/30/24 by Shahram Armas MD peg 3350-electrolytes 236-22.74-6.74 -5.86 gram (Golytely) 240 mL PO Q10M 1 day Tobacco use date assessed: 11/30/24 Dental Screening Dental Screen Date: 11/30/24 Did you have a dental visit in the last 12 months?: No Did you have a dental problem in the last 6 months where you did not have access to dental care?: No Was dental information given to patient?: No HPI hyperlipidemia HPI Details Patient comes in today for his follow-up visit States that he feels okay He denies any headaches or dizziness Denies any chest pains, no shortness of breath No nausea/vomiting, no abdominal pain No change in bowel habits noted He was not able to get his follow-up labs done prior to his appointment today - states that he was not aware he had to get some labs done again before his visit Adds that he was not able to keep his Dermatology appointment when he was referred for evaluation of hyperpigmented lesion on his left temporal area late last year and would like to see if he can get new referral for the same reason States that the lesion in his left temporal area appears to have gotten larger compared to last year Patient was also referred for a screening colonoscopy a couple of years ago - states that he was seen by GI back in April 2023 and was advised that they will contact him when his colonoscopy scheduled but states that he has not heard back from them since so he still has not had his colonoscopy done [facility] Medical History Overweight (BMI 25.0-29.9) Pure hypercholesterolemia Smoker Attention deficit disorder (ADD) Cluster headaches Surgical History History of tooth extraction Social History (Reviewed 11/30/24 @ 16:37 by JERI Casey Housing: Apartment Alcohol intake: current Alcohol intake frequency: 3 or more drinks per day Patient Tobacco Use Status: Former Tobacco user e-Cigarette/Vaping Use: Former Use Substance Use Type: Marijuana service: No Current occupational status: employed Cognitive needs: No Hearing needs: No Vision needs: No Questionnaire PHQ-9 Over the last 2 weeks, how often have you been bothered by any of the following problems? 1. Little interest or pleasure in doing things: not at all 2. Feeling down, depressed, or hopeless: not at all 3. Trouble falling or staying asleep, or sleeping too much: not at all 4. Feeling tired or having little energy: not at all 5. Poor appetite or overeating: not at all 6. Feeling bad about yourself - or that you are a failure or have let yourself or your family down: not at all 7. Trouble concentrating on things, such as reading the newspaper or watching television: not at all 8. Moving or speaking so slowly that other people could have noticed. Or the opposite - being so fidgety or restless that you have been moving around a lot more than usual: not at all 9. Thoughts that you would be better off or of hurting yourself in some way: not at all Total score: 0 Depression Screening Interpretation: Negative Depression Screening Done: Yes 92059 - PHQ-9 Billing: Yes Source: Developed by Drs. Kendall Lowe, Mylene Santana, Edgar Argueta and colleagues, with an educational kassi from [employer]. Thrive Questionnaire Date Thrive assessed: 11/30/24 I am a: Patient What is your living situation today?: I choose not to answer this question Within the past 12 months, did the food you bought not last and you didn't have the money to get more?: I choose not to answer this question Within the past 12 months, did you worry whether your food would run out before you got money to buy more?: I choose not to answer this question Do you have trouble paying for medicines?: I choose not to answer this question Do you have trouble getting transportation to medical appointments?: I choose not to answer this question Do you have trouble paying your heating and electricity bill?: I choose not to answer this question Do you have trouble taking care of your child, family member or friend?: I choose not to answer this question Do you have trouble with day-to-day activities such as bathing, preparing meals, shopping, managing finances, etc.?: I choose not to answer this question Are you currently unemployed and looking for a job?: I choose not to answer this question Are you interested in more education?: I choose not to answer this question Please select the resources that you would like help with: None Currently or been in a relationship where the following occur: No concerns reported THRIVE Score: 0 AUDIT C Alcohol Use Questionnaire (AUDIT-C) 1. How often do you have a drink containing alcohol?: Never 3. How often do you have six or more drinks on one occasion?: Never Total Score: 0 Score Reviewed/Action Taken: Yes ALAN-7 AMB Questionnaire ALAN-7 Date ALAN - 7 assessed: 11/30/24 Feeling nervous, anxious, or on edge: 0 = Not at all Not being able to stop or control worryin = Not at all Worrying too much about different things: 0 = Not at all Trouble relaxin = Not at all Being so restless that it is hard to sit still: 0 = Not at all Becoming easily annoyed or irritable: 0 = Not at all Feeling afraid as if something awful might happen: 0 = Not at all Total ALAN-7 score (0-4 normal; 5-9 mild; 10-14 moderate; 15-21 severe): 0 Source: Developed by Drs. Kendall Lowe, Mylene Santana, Edgar Argutea and colleagues, with an educational kassi from [employer]. Review of Systems Const Denies chills, Denies fatigue, Denies fever(s) and Denies headache(s) ENT Denies dysphagia, Denies dizziness, Denies otalgia, Denies headache(s), Denies neck pain, Denies odynophagia and Denies sore throat Card Denies chest pain, Denies palpitations and Denies dyspnea Resp Denies chest congestion, Denies cough and Denies dyspnea GI Denies abdominal pain, Denies constipation, Denies dysphagia, Denies heartburn, Denies diarrhea, Denies nausea, Denies odynophagia and Denies vomiting Denies dysuria, Denies nocturia and Denies urinary frequency Musc Denies back pain and Denies neck pain Skin/Breast Details: (+) large, raised, hyperpigmented lesion over the left temporal area Denies rash Neuro Denies dizziness and Denies headache(s) Endo Denies fatigue and Denies palpitations Physical exam (Primary Care) Vital Signs: Last Vital Signs Pulse 78 11/30/24 16:36 BP 120/80 11/30/24 16:36 Pulse Ox 97 11/30/24 16:36 Oxygen Delivery Method Room Air 11/30/24 16:36 BMI result Body Mass Index 27.1 Tobacco/Smoking Status: Tobacco use Status Tobacco use date assessed 11/30/24 11/30/24 16:41 Patient Tobacco Use Status Former Tobacco user 11/30/24 16:41 e-Cigarette/Vaping Use Former Use 11/30/24 16:41 PHQ-9: PHQ-9 Score PHQ-9: Total score 0 11/30/24 17:12 Depression Screening Interpretation: Negative Thrive Assessment: Date of Thrive Assessment Date Thrive assessed 11/30/24 11/30/24 16:41 Currently or been in a relationship where the following occur: No concerns reported Const General: no acute distress and alert HENMT Ears: TM's normal bilaterally and EAC's normal Throat: Yes posterior oropharynx normal and Yes tonsils normal (no TP congestion) Neck Neck: Yes supple and No lymphadenopathy Thyroid: Thyroid normal Resp Auscultation: clear to auscultation bilaterally, no rales and no wheezes Cardio Rate: regular rate Rhythm: regular rhythm Heart sounds: no murmurs GI Palpation (GI): Soft to palpation and nontender Auscultation: normal bowel sounds Skin Other: (+) large, raised, hyperpigmented lesion over the left temporal area Rashes: no rashes Extrem General: Yes no clubbing, cyanosis or edema Coding Level of Care Code Est Pt Level 4 (21706) Diagnoses Pure hypercholesterolemia E78.00 Cluster headache, not intractable, unspecified chronicity pattern G44.009 Headache chronicity pattern: unspecified pattern Intractability: not intractable Attention deficit disorder (ADD) without hyperactivity F98.8 Hyperactivity presence: absent Hyperpigmented skin lesion L81.9 Overweight (BMI 25.0-29.9) E66.3 Colon cancer screening Z12.11 Additional Codes PHQ-9 - 74450 - PHQ-9 Billing: Yes ([id number]) Assessment & Plan Assessment & Plan (1) Pure hypercholesterolemia: Code(s): E78.00 - Pure hypercholesterolemia, unspecified Category: Medical Plan: Reinforced low-cholesterol diet Patient is reminded again that his cholesterol levels were significantly elevated on his labs done back in November 2023, with his total cholesterol level at 277 mg/dL and LDL cholesterol at 194 mg/dL He was not able to get his follow-up labs done prior to his appointment today as he states that he was not aware that he had to repeat labs done at this time but he is willing to go to the lab and get them done as soon as possible and he states that he will try to get this done over the weekend (2) Cluster headaches: Code(s): G44.009 - Cluster headache syndrome, unspecified, not intractable Category: Medical Qualifiers: Headache chronicity pattern: unspecified pattern Intractability: not intractable Qualified Code(s): G44.009 - Cluster headache syndrome, unspecified, not intractable Plan: Patient states that he has NOT had any significant bouts of cluster headaches in over 3 years now He continues to see Dr. Reis for neurology follow up regularly/yearly (3) Attention deficit disorder (ADD): Code(s): F98.8 - Other specified behavioral and emotional disorders with onset usually occurring in childhood and adolescence Category: Medical Qualifiers: Hyperactivity presence: absent Qualified Code(s): F98.8 - Other specified behavioral and emotional disorders with onset usually occurring in childhood and adolescence Plan: Patient used to take Methylphenidate but was advised by Dr. Reis a couple of years ago to come off his Rx, due to his age He was advised that it becomes riskier continuing on stimulants as one gets older, including increasing risks of cardiovascular events Patient states that he has not had any significant issues related to his ADD since he stopped taking his Rx a couple of years ago and he feels fine without them (4) Hyperpigmented skin lesion: Code(s): L81.9 - Disorder of pigmentation, unspecified Category: Medical Plan: Patient was previously referred to Dermatology for further evaluation and possible excision of the lesion on his left temporal area but states that he was not able to keep his appointment and is presently looking for a new referral to Dermatology for the same reason - new referral to [facility] placed (5) Overweight (BMI 25.0-29.9): Code(s): E66.3 - Overweight Category: Medical Plan: Reinforced diet/exercise as tolerated/lose weight (6) Colon cancer screening: Code(s): Z12.11 - Encounter for screening for malignant neoplasm of colon Category: Medical Plan: Patient was referred for screening colonoscopy a couple of years ago He was seen by GI back in 2022 but states that he has not heard back from them since with regards to scheduling his colonoscopy Will refer patient again to GI to get his screening colonoscopy done Plan To return as scheduled in January 2025 for his next annual physical examination Orders: Referrals Gastroenterology Referral Z12.11 - Encounter for screening for malignant neoplasm of colon Dermatology Referral L81.9 - Disorder of pigmentation, unspecified
== END 2024-11-30 17:15 | disposition home or self-care (01) ==
LOC: HO.HMCH 16:35
PROVIDERS: PCP Internal Medicine; Visit Provider Internal Medicine
DX: E78.00 Pure hypercholesterolemia, unspecified (principal); G44.009 Cluster headache syndrome, unspecified, not intractable; F98.8 Other specified behavioral and emotional disorders with onset usually occurring in childhood and adolescence; L81.9 Disorder of pigmentation, unspecified; E66.3 Overweight; Z12.11 Encounter for screening for malignant neoplasm of colon

== ENCOUNTER → 2024-11-30 16:34 | Outpatient (BNVA) | payer BC, SELFPAY | PROVIDERS: PCP Internal Medicine; Visit Provider Internal Medicine | DX: E66.3 Overweight (principal); E78.5 Hyperlipidemia, unspecified; E78.00 Pure hypercholesterolemia, unspecified; G44.009 Cluster headache syndrome, unspecified, not intractable; F98.8 Other specified behavioral and emotional disorders with onset usually occurring in childhood and adolescence; Z68.27 Body mass index [BMI] 27.0-27.9, adult | CPT/HCPCS: 96127 ==

== ENCOUNTER 2025-01-19 09:33 | Outpatient (REF) | payer BC, SELFPAY ==
[2025-01-19 10:17] LABS: MANUAL DIFF FLAG NO
[2025-01-19 10:57] LABS: Hematocrit 44.0 % (42.0-52.0); Hemoglobin 15.1 g/dl (14.0-18.0); Imm Gran Abs Auto 0.03 X10*3/uL (0.00-0.03); Imm Gran Pct Auto 0.5 % (0.0-0.4); Lymphocytes Absolute Auto 2.1 X10*3/uL (1.2-4.9); Mean Corpuscular HGB Conc 34.3 g/dl (31.0-36.0); Mean Corpuscular Hemoglobin 30.2 pg (27.0-33.0); Mean Corpuscular Volume 88.0 fL (80.0-98.0); NRBC Abs Auto 0.000 X10*3/uL (0.0-0.012); NRBC Pct Auto 0.0 /100WBC (0.0-0.2); Platelet Count 226 X10*3/uL (160-400); Red Blood Count 5.00 X10*6/uL (4.60-5.80); White Blood Count 6.3 X10*3/uL (4.8-10.8)
[2025-01-19 11:30] LABS: Appearance Urine Clear; Glucose Urine UA Negative (Negative); PH 5.5 (5.0-9.0); Specific Gravity - Urine 1.015 (1.005-1.025)
[2025-01-19 11:52] LABS: Alanine Aminotransferase 34 U/L (0-40); Albumin Level 4.4 g/dL (3.5-5.0); Alkaline Phosphatase 72 U/L (39-117); Anion Gap 10 (12-20); Aspartate Amino Transferase 27 U/L (5-37); Blood Urea Nitrogen 16 mg/dL (9-16); Calcium 8.8 mg/dL (8.4-10.2); Carbon Dioxide 25 mmol/L (22-29); Chloride 107 mmol/L (96-108); Cholesterol 299 mg/dL (<200); Estimated Glomerular Filt Rate > 60; HDL Cholesterol 56 mg/dL (>40); Potassium 4.1 mmol/L (3.3-5.1); Sodium 138 mmol/L (135-145); Total Protein 6.9 g/dL (6.5-8.0); Triglycerides 107 mg/dL (<150)
== END 2025-01-19 09:34 | disposition home or self-care (01) ==
LOC: HO.LAB 09:33
PROVIDERS: Visit Provider Internal Medicine
DX: R30.0 Dysuria (principal); E78.00 Pure hypercholesterolemia, unspecified; D64.9 Anemia, unspecified; E55.9 Vitamin D deficiency, unspecified
CPT/HCPCS: 36415; 80053; 80061; 81003; 82306; 84443; 85025

== ENCOUNTER 2025-02-20 16:18 | Outpatient (AMB) | payer BC, SELFPAY ==
--- NOTE | 2025-02-20 16:20 | A.OFFPC_ITS ---
Vital Signs 02/20/25 16:21 Height 5 ft 5 in Weight 166 lb BMI 27.6 BP 118/84 Blood Pressure Location Lt brachial Position Sitting Pulse 87 Pulse Source Pulse Oximeter Temp 97.3 F Temp Source Temporal Artery Scan Pulse Oximetry (%) 98 Oxygen Delivery Method Room Air Intake Visit Reasons: annual exam Allergies No Known Allergies Allergy (Verified 02/20/25 16:53) Medication List - Last Reconciled 02/20/25 by Shahram Armas MD No Known Home Meds Tobacco use date assessed: 02/20/25 Dental Screening Dental Screen Date: 02/20/25 Did you have a dental visit in the last 12 months?: No Did you have a dental problem in the last 6 months where you did not have access to dental care?: No Was dental information given to patient?: Patient has dentist HPI annual exam HPI Details Patient comes in today for his annual physical examination States that he feels okay He denies any headaches or dizziness Denies any chest pains, no increased shortness of breath No nausea/vomiting, no abdominal pain No change in bowel habits noted He denies any acute urinary symptoms States that he still has the raised hyperpigmented skin lesion on the left side of his neck He was referred to [facility] to have this checked out and potentially biopsied but he has not been seen yet States that he was recently advised by [facility] that they are not taking any new patients at this time and was he is now requesting for a referral to another personalized living manager instead He had his follow-up labs done last month - to discuss his results [facility] Medical History Overweight (BMI 25.0-29.9) Pure hypercholesterolemia Smoker Attention deficit disorder (ADD) Cluster headaches Surgical History History of tooth extraction Social History Housing: Apartment Alcohol intake: current Alcohol intake frequency: 3 or more drinks per day Patient Tobacco Use Status: Former Tobacco user e-Cigarette/Vaping Use: Former Use Substance Use Type: Marijuana service: No Current occupational status: employed Cognitive needs: No Hearing needs: No Vision needs: No Questionnaire PHQ-9 Over the last 2 weeks, how often have you been bothered by any of the following problems? 1. Little interest or pleasure in doing things: not at all 2. Feeling down, depressed, or hopeless: not at all 3. Trouble falling or staying asleep, or sleeping too much: not at all 4. Feeling tired or having little energy: not at all 5. Poor appetite or overeating: not at all 6. Feeling bad about yourself - or that you are a failure or have let yourself or your family down: not at all 7. Trouble concentrating on things, such as reading the newspaper or watching television: not at all 8. Moving or speaking so slowly that other people could have noticed. Or the opposite - being so fidgety or restless that you have been moving around a lot more than usual: not at all 9. Thoughts that you would be better off or of hurting yourself in some way: not at all Total score: 0 Depression Screening Interpretation: Negative Depression Screening Done: Yes 93267 - PHQ-9 Billing: Yes Source: Developed by Drs. Kendall Lowe, Mylene Santana, Edgar Argueta and colleagues, with an educational kassi from [employer]. Thrive Questionnaire Date Thrive assessed: 02/20/25 I am a: Patient What is your living situation today?: I choose not to answer this question Within the past 12 months, did the food you bought not last and you didn't have the money to get more?: I choose not to answer this question Within the past 12 months, did you worry whether your food would run out before you got money to buy more?: I choose not to answer this question Do you have trouble paying for medicines?: I choose not to answer this question Do you have trouble getting transportation to medical appointments?: I choose not to answer this question Do you have trouble paying your heating and electricity bill?: I choose not to answer this question Do you have trouble taking care of your child, family member or friend?: I choose not to answer this question Do you have trouble with day-to-day activities such as bathing, preparing meals, shopping, managing finances, etc.?: I choose not to answer this question Are you currently unemployed and looking for a job?: I choose not to answer this question Are you interested in more education?: I choose not to answer this question Please select the resources that you would like help with: None Currently or been in a relationship where the following occur: No concerns reported THRIVE Score: 0 AUDIT C Alcohol Use Questionnaire (AUDIT-C) 1. How often do you have a drink containing alcohol?: 2-3 times a week 2. How many drinks containing alcohol do you have on a typical day when you are drinking?: 1 or 2 3. How often do you have six or more drinks on one occasion?: Never Total Score: 3 Score Reviewed/Action Taken: Yes ALAN-7 AMB Questionnaire ALAN-7 Date ALAN - 7 assessed: 11/30/24 Feeling nervous, anxious, or on edge: 0 = Not at all Not being able to stop or control worryin = Not at all Worrying too much about different things: 0 = Not at all Trouble relaxin = Not at all Being so restless that it is hard to sit still: 0 = Not at all Becoming easily annoyed or irritable: 0 = Not at all Feeling afraid as if something awful might happen: 0 = Not at all Total ALAN-7 score (0-4 normal; 5-9 mild; 10-14 moderate; 15-21 severe): 0 Source: Developed by Drs. Kendall Lowe, Mylene Santana, Edgar Argueta and colleagues, with an educational kassi from [employer]. Review of Systems Const Denies chills, Denies fatigue, Denies fever(s), Denies headache(s), Denies malaise and Denies weakness Eyes Denies blurry vision, Denies change in vision, Denies irritation and Denies itchy eyes ENT Denies dysphagia, Denies dizziness, Denies otalgia, Denies headache(s), Denies nasal congestion, Denies neck pain, Denies odynophagia and Denies sore throat Card Denies chest pain, Denies rapid heart rate, Denies irregular heart rhythm, Denies palpitations and Denies dyspnea Resp Denies chest congestion, Denies cough, Denies dyspnea and Denies wheezing GI Denies abdominal pain, Denies bloating, Denies constipation, Denies dysphagia, Denies heartburn, Denies diarrhea, Denies nausea, Denies odynophagia and Denies vomiting Denies hematuria, Denies difficulty urinating, Denies dysuria, Denies urinary frequency and Denies urinary urgency Musc Denies back pain, Denies arthralgias, Denies joint swelling, Denies muscle weakness and Denies neck pain Skin/Breast Details: (+) large, raised, hyperpigmented lesion over the left neck area Denies change in pigmentation, Denies rash and Denies unusual bruising Neuro Denies dizziness, Denies headache(s), Denies paresthesias and Denies weakness Endo Denies fatigue and Denies palpitations Aller/Immun Denies itchy eyes and Denies wheezing Physical exam (Primary Care) Vital Signs: Last Vital Signs Temp 97.3 F 02/20/25 16:21 Pulse 87 02/20/25 16:21 BP 118/84 02/20/25 16:21 Pulse Ox 98 02/20/25 16:21 Oxygen Delivery Method Room Air 02/20/25 16:21 BMI result Body Mass Index 27.6 Tobacco/Smoking Status: Tobacco use Status Tobacco use date assessed 02/20/25 02/20/25 16:24 Patient Tobacco Use Status Former Tobacco user 02/20/25 16:24 e-Cigarette/Vaping Use Former Use 02/20/25 16:24 PHQ-9: PHQ-9 Score PHQ-9: Total score 0 02/20/25 16:53 Depression Screening Interpretation: Negative Thrive Assessment: Date of Thrive Assessment Date Thrive assessed 11/30/24 02/20/25 16:24 Currently or been in a relationship where the following occur: No concerns reported Const General: no acute distress, alert and awake Orientation/consciousness: patient oriented x3 HENMT Head: Yes normocephalic and Yes atraumatic Ears: external ears normal, TM's normal bilaterally and EAC's normal General nose exam: No nasal discharge present Face and sinus: Yes normal facial exam and Yes sinuses nontender Teeth and gingiva: dentition normal Throat: Yes posterior oropharynx normal and Yes tonsils normal (no TP congestion) Eyes Eyelids: Yes eyelids normal Conjunctivae: conjunctivae normal Pupils: Equal, round and reactive pupils present EOM: EOMs intact bilaterally Neck Neck: Yes supple and No lymphadenopathy Thyroid: Thyroid normal Resp Auscultation: clear to auscultation bilaterally, no rales and no wheezes Cardio Rate: regular rate Rhythm: regular rhythm Heart sounds: no murmurs GI Palpation (GI): Soft to palpation, nontender and No hepatosplenomegaly present Auscultation: normal bowel sounds General: Yes no CVA tenderness Back/Spine/Pelvis Back: no CVA tenderness Thoracic/Lumbar Spine: thoracic and lumbar spine normal to inspection Skin Other: (+) raised, dark/hyperpigmented skin lesion on the left side of the neck Rashes: no rashes Neuro General: patient oriented x3, moves all extremities, no focal motor deficits and CN's II-XI intact bilaterally Cranial nerves: Yes Equal, round and reactive pupils present Cognition (Neuro): normal cognition Gait exam (Neuro): Normal gait present Extrem General: Yes no clubbing, cyanosis or edema Results Reviewed Results Reviewed: Laboratory Tests 12/14/23 01/19/25 01/19/25 07:15 10:04 10:15 WBC 6.3 Hgb 15.1 Hct 44.0 Plt Count 226 Sodium 138 Potassium 4.1 Creatinine 0.86 Estimated GFR > 60 Fasting Glucose 98 Calcium 8.8 AST 27 ALT 34 Triglycerides 132 107 Cholesterol 277 H 299 H LDL Cholesterol, Calc 194 H 222 H HDL Cholesterol 57 56 25-OH Vitamin D Total 54.0 TSH 1.94 Ur Specific Kemp 1.015 Urine Protein Negative Urine Glucose (UA) Negative Urine Blood Negative Urine Nitrite Negative Ur Leukocyte Esterase Negative Coding Level of Care Code Est Pt Prev Care 40-64y(70907) Diagnoses Annual physical exam Z00.00 Pure hypercholesterolemia E78.00 Cluster headache, not intractable, unspecified chronicity pattern G44.009 Headache chronicity pattern: unspecified pattern Intractability: not intractable Attention deficit disorder (ADD) without hyperactivity F98.8 Hyperactivity presence: absent Hyperpigmented skin lesion L81.9 Overweight (BMI 25.0-29.9) E66.3 Additional Codes PHQ-9 - 97339 - PHQ-9 Billing: Yes ([id number]) Assessment & Plan Assessment & Plan (1) Annual physical exam: Code(s): Z00.00 - Encounter for general adult medical examination without abnormal findings Category: Medical Plan: Results of his labs done last month reviewed and discussed with patient He was previously referred for screening colonoscopy and was seen by GI for a pre colonoscopy visit back in late 2022 states that he still has not had the procedure done yet He has been referred back to GI again for this and is now scheduled to be seen again by GI next month on 03/16/2025 (2) Pure hypercholesterolemia: Code(s): E78.00 - Pure hypercholesterolemia, unspecified Category: Medical Plan: Reinforced low-cholesterol diet His cholesterol levels were still significantly elevated on his labs done last month and advised that they are now even higher than they were back in November 2023, with his total cholesterol level now at 299 mg/dL and LDL cholesterol at 222 mg/dL Patient is again requesting for some more time to work on his diet stated that if his numbers do not improve significantly his next follow-up visit, then he will likely agree to go ahead be started on some cholesterol-lowering medications at that time Will have him recheck his labs and fasting lipids in 6 months for follow-up (3) Cluster headaches: Code(s): G44.009 - Cluster headache syndrome, unspecified, not intractable Category: Medical Qualifiers: Headache chronicity pattern: unspecified pattern Intractability: not intractable Qualified Code(s): G44.009 - Cluster headache syndrome, unspecified, not intractable Plan: Patient states that he has NOT had any significant bouts of cluster headaches in over 3 years now He continues to see Dr. Reis for neurology follow up regularly/yearly (4) Attention deficit disorder (ADD): Code(s): F98.8 - Other specified behavioral and emotional disorders with onset usually occurring in childhood and adolescence Category: Medical Qualifiers: Hyperactivity presence: absent Qualified Code(s): F98.8 - Other specified behavioral and emotional disorders with onset usually occurring in childhood and adolescence Plan: Patient used to take Methylphenidate but was advised by Dr. Reis a couple of years ago to come off his Rx, due to his age He was advised that it becomes riskier continuing on stimulants as one gets older, including increasing risks of cardiovascular events Patient states that he has not had any significant issues related to his ADD since he stopped taking his Rx a couple of years ago and he feels fine without them (5) Hyperpigmented skin lesion: Code(s): L81.9 - Disorder of pigmentation, unspecified Category: Medical Plan: Patient was previously referred to Dermatology for further evaluation and possible excision of the lesion on his left neck area but states that he was not able to keep his appointment Adds that he was also recently advised by [facility] that they are no longer accepting new patients at this time Will try referring him to Dr. Mcclelland in [place] for dermatology evaluation and management (6) Overweight (BMI 25.0-29.9): Code(s): E66.3 - Overweight Category: Medical Plan: Reinforced diet/exercise as tolerated/lose weight Plan Follow-up in 6 months Orders: Orders Comprehensive [facility]. Panel Fast 6 Months E78.00 - Pure hypercholesterolemia, unspecified Lipid Panel 6 Months E78.00 - Pure hypercholesterolemia, unspecified Referrals Dermatology Referral L81.9 - Disorder of pigmentation, unspecified
[2025-02-20 16:21] VITALS: BP 118/84; PULSE 87; TEMP 36.3; O2SAT 98; BMI 27.6
== END 2025-02-20 17:04 | disposition home or self-care (01) ==
LOC: HO.HMCH 16:18
PROVIDERS: PCP Internal Medicine; Visit Provider Internal Medicine
DX: Z00.00 Encounter for general adult medical examination without abnormal findings (principal); E78.00 Pure hypercholesterolemia, unspecified; G44.009 Cluster headache syndrome, unspecified, not intractable; F98.8 Other specified behavioral and emotional disorders with onset usually occurring in childhood and adolescence; L81.9 Disorder of pigmentation, unspecified; E66.3 Overweight

== ENCOUNTER → 2025-02-20 16:18 | Outpatient (BNVA) | payer BC, SELFPAY | PROVIDERS: PCP Internal Medicine; Visit Provider Internal Medicine | DX: Z00.00 Encounter for general adult medical examination without abnormal findings (principal); E78.00 Pure hypercholesterolemia, unspecified; G44.009 Cluster headache syndrome, unspecified, not intractable; F98.8 Other specified behavioral and emotional disorders with onset usually occurring in childhood and adolescence; L81.9 Disorder of pigmentation, unspecified; E66.3 Overweight; Z68.27 Body mass index [BMI] 27.0-27.9, adult | CPT/HCPCS: 96127 ==

== ENCOUNTER 2025-03-16 12:24 | Outpatient (AMB) | payer BC, SELFPAY ==
--- NOTE | 2025-03-16 12:30 | MHC.OFFVIS ---
Vital Signs 03/16/25 12:33 Height 5 ft 5 in Weight 163 lb 2.273 oz BMI 27.1 BP 134/78 Blood Pressure Location Lt brachial Position Sitting Pulse 77 Intake Visit Reasons: [place] rescreening Intake Note: Garrett presents in the office as a colonoscopy screening. CC: no concerns today! Sack Department Supervisor Required: No Allergies No Known Allergies Allergy (Verified 02/20/25 16:53) HPI HPI [place] rescreening: Details: 52-year-old male here for preprocedural meeting to discuss a screening colonoscopy. He is referred by Shahram Armas of [facility] primary care. PMX Smoker Attention deficit disorder Cluster headaches High cholesterol * SURGICAL HISTORY Teeth extraction * ALLERGIES: NKDA * Information Assurance LABS: Laboratory Tests 01/19/25 10:15 WBC 6.3 Hgb 15.1 Hct 44.0 Plt Count 226 Estimated GFR > 60 Total Bilirubin 0.7 AST 27 ALT 34 Alkaline Phosphatase 72 TSH 1.94 TODAY'S VISIT This is his first colonoscopy. HE DENIES ANY BOWEL OR upper GI problems. He denies any cardiac or respiratory problems. He has magnetic resonance technologist with anesthesia or sedation. No ID problems. No known FHX of crc or polyps. FOR[facility]LY [facility], [facility] Medical History Overweight (BMI 25.0-29.9) Pure hypercholesterolemia Smoker Attention deficit disorder (ADD) Cluster headaches Surgical History History of tooth extraction Social History Housing: Apartment Alcohol intake: current Alcohol intake frequency: 3 or more drinks per day Patient Tobacco Use Status: Former Tobacco user e-Cigarette/Vaping Use: Former Use Substance Use Type: Marijuana service: No Current occupational status: employed Cognitive needs: No Hearing needs: No Vision needs: No Review of Systems Const Denies fatigue, Denies fever(s), Denies night sweats, Denies poor appetite and Denies weight loss ENT Reports Normal hearing present, Denies dental pain, Denies dysphagia, Denies hearing loss, Denies mouth pain, Denies odynophagia, Denies throat swelling, Denies tongue swelling and Reports other (Dentition adequate) Card Reports no additional complaints Resp Reports no additional complaints GI Details: Denies abdominal pain, Denies melena, Denies bloating, Denies hematochezia, Denies constipation, Denies GI cramping, Denies dysphagia, Denies excessive flatus, Denies early satiety, Denies heartburn, Denies diarrhea, Denies nausea, Denies odynophagia, Denies vomiting and Denies hematemesis Skin/Breast Denies pruritus, Denies lesions, Denies rash and Denies jaundice Neuro Reports Normal hearing present and Denies Abnormal speech present Endo Denies fatigue Aller/Immun Denies throat swelling and Denies tongue swelling Physical Exam Vital Signs: Last Vital Signs Pulse 77 03/16/25 12:33 BP 134/78 03/16/25 12:33 BMI result Body Mass Index 27.1 Const General: cooperative, no acute distress, well developed and well groomed Nutritional Appearance: average body habitus and well nourished Orientation/consciousness: oriented to person, oriented to place and oriented to time Limitations: No language barrier HEENT Head: Yes normocephalic and Yes atraumatic Eyes General: appearance normal, both eyes and all related structures Pupils: Equal, round and reactive pupils present Neck Neck: Yes normal visual inspection and Yes no lymphadenopathy Thyroid: Thyroid normal Resp Effort & Inspection: normal respiratory effort and able to speak in complete sentences Auscultation: clear to auscultation bilaterally Cardio Rate: regular rate Rhythm: regular rhythm Heart sounds: Normal, physiologic split S2 sound present Peripheral pulses: radial pulses present and posterior tibial pulses present GI Inspection: No distended and No Abdominal panniculus present Palpation (GI): Soft to palpation, nontender, no guarding, not rigid and No hepatosplenomegaly present Percussion: Yes normal to percussion Auscultation: normal bowel sounds Rectal Exam - Male: Yes deferred Skin General skin exam: no rashes or lesions noted, turgor normal, skin not dry, no jaundice, No spider nevi and no striae Rashes: no rashes Nails: normal Neuro General: oriented to person, oriented to place and oriented to time Cranial nerves: Yes Equal, round and reactive pupils present and Yes Normal hearing present Speech: No Abnormal speech present Extrem General: Yes normal to inspection, No clubbing, No cyanosis and No edema Psych Appearance: grossly normal and well kempt Mental Status: mental status grossly normal Speech and movement: Normal speech and movement present Thought process: Normal thought process present and not confabulating Thought content: Normal thought content present Insight: Good insight present (Psych) Judgement: Good judgement present (Psych) Assessment & Plan Assessment & Plan (1) Pre-op examination: Code(s): Z01.818 - Encounter for other preprocedural examination Category: Medical Plan This is his first colonoscopy. HE DENIES ANY BOWEL OR upper GI problems. He denies any cardiac or respiratory problems. He has magnetic resonance technologist with anesthesia or sedation. No ID problems. No known FHX of crc or polyps. Orders: Referrals GI Procedure Notification Z01.818 - Encounter for other preprocedural examination Medications: New peg 3350-electrolytes 236-22.74-6.74 -5.86 gram (Golytely) until fecal effluent is clear; do not exceed a total volume of 2,000 mL 240 mL PO Q10M 4,000 mL 0RF 1 day Z12.11 - Encounter for screening for malignant neoplasm of colon bisacodyl (Dulcolax (bisacodyl)) 10 mg (2 x 5 mg) PO BEDTIME 4 tabs 0RF 2 days Coding Level of Care Code New Pt Level 3 (60647) Diagnoses Pre-op examination Z01.818
[2025-03-16 12:33] VITALS: BP 134/78; PULSE 77; BMI 27.1
== END 2025-03-16 12:48 | disposition home or self-care (01) ==
LOC: HO.HGI 12:25
PROVIDERS: PCP Internal Medicine; Visit Provider Nurse Practitioner
DX: Z01.818 Encounter for other preprocedural examination (principal); Z12.11 Encounter for screening for malignant neoplasm of colon
CPT/HCPCS: S0285